=== PATIENT | male | born 2000 | race Caucasian/White ===

== ENCOUNTER 2022-01-09 11:48 | Emergency (ER) | payer MEDICAID | END 2022-01-09 12:13 | disposition left against medical advice (07) | LOC: ER 11:48 | DX: Z53.21 Procedure and treatment not carried out due to patient leaving prior to being seen by health care provider (principal) ==

== ENCOUNTER 2022-01-16 12:45 | Emergency (ER) | payer MEDICAID ==
[~2022-01-16] VITALS: Ht 172.7 cm; Wt 78.0 kg
[2022-01-16 13:07] VITALS: BP 125/70
== END 2022-01-16 16:00 | disposition left against medical advice (07) ==
LOC: ER 13:46
DX: Z53.21 Procedure and treatment not carried out due to patient leaving prior to being seen by health care provider (principal)